=== PATIENT | female | born 1960 | race Two or more races ===

== ENCOUNTER 2024-01-05 16:56 | Emergency (ER) | payer OTHER ==
[2024-01-06] MEDS ORDERED: TRAM50TA2 PO (08:57)
== END 2024-01-05 17:10 | disposition left against medical advice (07) ==
LOC: ER 16:56
DX: Z00.00 Encounter for general adult medical examination without abnormal findings (principal); Z53.21 Procedure and treatment not carried out due to patient leaving prior to being seen by health care provider; W19.XXXA Unspecified fall, initial encounter; Y93.89 Activity, other specified; Y92.89 Other specified places as the place of occurrence of the external cause; Y99.8 Other external cause status

== ENCOUNTER 2024-01-06 06:57 | Emergency (ER) | payer OTHER, MEDICAID ==
[~2024-01-06] VITALS: Ht 162.6 cm; Wt 63.1 kg
[2024-01-06 07:59] VITALS: BP 140/68; PULSE 70; RESP 18; TEMP 98.6; O2SAT 98
[2024-01-06] MEDS: methylPREDNISolone SOD SUCC 125 MG/2 ML VL IM ONE (08:53)
[2024-01-06] MEDS: KETOROLAC TROMETH 30 MG/ML 1ML VIAL IM ONE (08:54)
[2024-01-06] MEDS ORDERED: TRAM50TA2 PO (08:57)
== END 2024-01-06 09:57 | disposition home or self-care (01) ==
LOC: ER 06:57
DX: S82.891A Other fracture of right lower leg, initial encounter for closed fracture (principal); Z88.5 Allergy status to narcotic agent; X50.1XXA Overexertion from prolonged static or awkward postures, initial encounter; Y93.39 Activity, other involving climbing, rappelling and jumping off; Y92.89 Other specified places as the place of occurrence of the external cause; Y99.8 Other external cause status
CPT/HCPCS: 29515; 73610; 73630; 96372; 99284; J1885; J2919